=== PATIENT | female | born 1995 | race Two or more races ===

== ENCOUNTER 2019-04-13 00:15 | Emergency (ER) | payer OTHER ==
[2019-04-13 00:39] VITALS: BP 120/77; PULSE 85; TEMP 98.1; BMI 26.1
[2019-04-13] MEDS ORDERED: METOCLOPRAMIDE HCL INJECTION 10 MG/2 ML VIAL IVPB ONE (01:13)
[2019-04-13] MEDS ORDERED: LIDOCAINE 5% TOPICAL PATCH TP ONE (01:13)
[2019-04-13] MEDS ORDERED: SODIUM CHLORIDE 0.9% 500 ML INFUS.BAG IV ONE (01:13)
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
[2019-04-13] MEDS ORDERED: METOCLOPRAMIDE HCL INJECTION 10 MG/2 ML VIAL ONE (01:51)
[2019-04-13] MEDS ORDERED: LIDOCAINE 5% TOPICAL PATCH ONE (01:52)
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
[2019-04-13] MEDS ORDERED: KETOROLAC TROMETHAMINE 30 MG/1 ML VIAL IM ONE (03:11)
[2019-04-13] MEDS ORDERED: KETOROLAC TROMETHAMINE 30 MG/1 ML VIAL ONE (04:00)
--- NOTE | 2019-04-13 16:59 | EKG ---
Test Reason : Blood Pressure : / mmHG Vent. Rate : 079 BPM Atrial Rate : 079 BPM P-R Int : 140 ms QRS Dur : 070 ms QT Int : 408 ms P-R-T Axes : 044 027 025 degrees QTc Int : 467 ms NORMAL SINUS RHYTHM NORMAL ECG NO PREVIOUS ECGS AVAILABLE Confirmed by IZZY GONSALEZ, ALINA ([id number] on 04/13/2019 4:59:31 PM Referred By: Confirmed By:ALINA MAGANA MD
[2019-04-13] MEDS ORDERED: LIDOCAINE PATCH REMOVAL MC SCH (22:00)
== END 2019-04-13 04:05 | disposition home or self-care (01) ==
LOC: JER 00:15
PROC: 3E0233Z Introduction of Anti-inflammatory into Muscle, Percutaneous Approach (ICD-10-PCS; principal; 2019-04-13)
PROC: 3E033GC Introduction of Other Therapeutic Substance into Peripheral Vein, Percutaneous Approach (ICD-10-PCS; 2019-04-13)
DX: S16.1XXA Strain of muscle, fascia and tendon at neck level, initial encounter (principal); V49.59XA Passenger injured in collision with other motor vehicles in traffic accident, initial encounter; Y92.488 Other paved roadways as the place of occurrence of the external cause; Y93.89 Activity, other specified; Y99.8 Other external cause status
CPT/HCPCS: 84703; 93005; 93010; 99284-25

== ENCOUNTER 2021-09-07 06:28 | Emergency (ER) | payer OTHER ==
[2021-09-07 07:20] VITALS: BP 100/67; PULSE 85; TEMP 98.4; BMI 31.3
[2021-09-07] MEDS ORDERED: DIPHTH,PERTUSS(ACELL),TET 0.5 ML DISP.SYRIN IM ONE ×2 (07:48→07:53)
== END 2021-09-07 08:03 | disposition home or self-care (01) ==
LOC: JER 06:28 → JERFT 06:28
PROC: 3E0234Z Introduction of Serum, Toxoid and Vaccine into Muscle, Percutaneous Approach (ICD-10-PCS; principal; 2021-09-07)
DX: S61.230A Puncture wound without foreign body of right index finger without damage to nail, initial encounter (principal); Y04.1XXA Assault by human bite, initial encounter
CPT/HCPCS: 90715; 99283-25

== ENCOUNTER 2021-11-14 00:23 | Emergency (ER) | payer OTHER ==
[2021-11-14 00:45] VITALS: BP 140/77; PULSE 106; RESP 20; TEMP 97.6; BMI 28.3
[2021-11-14] MEDS ORDERED: diphenhydrAMINE HCL 25 MG CAPSULE (FP) PO ONE ×2 (00:56→01:06)
[2021-11-14] MEDS ORDERED: DEXAMETHASONE LIQUID 0.5 MG/5 ML PO ONE (00:56)
[2021-11-14] MEDS ORDERED: EPINEPHrine 1:1,000 1,000 MCG/ML ML SQ ONE (01:00)
[2021-11-14] MEDS ORDERED: EPINEPHrine/PF 1 MG/1 ML (1:1,000) AMPULE ONE (01:06)
[2021-11-14] MEDS ORDERED: DEXAMETHASONE SOD PHOSPHATE 10 MG/1 ML VIAL ONE (01:06)
== END 2021-11-14 03:11 | disposition home or self-care (01) ==
LOC: JER 00:23
DX: T78.1XXA Other adverse food reactions, not elsewhere classified, initial encounter (principal)
CPT/HCPCS: 99283-25